=== PATIENT | male | born 1945 | race Caucasian/White ===

== ENCOUNTER → 2016-06-22 | Outpatient (CLI) | payer OTHER ==
[~2016-06-22] MED LIST: *BLDWK6; *XRAY -; /PANT40TA; CELEBRE200 PO; DARVOCET-N PO; ELIDEL TOPICAL; LIPITOR10 PO; MOTRIN800 PO; NEXIUM40 PO; PRAVACHOL PO; PRAVACHOL4 PO; PREVACID30 PO; PROTONIX40 PO; SARNLOT TOPICAL; VIT B; VITA100T; [UNRECOGNIZED DRUG - OTHER] TOPICAL
--- NOTE | 2016-06-22 18:20 | REP ---
Clinical: Chest pain with sinusitis. Technique: PA and lateral. Comparison: 11/15/2015. Findings: Acute patchy infiltrates involving the left upper lobe/lingula and left lower lobe and to a lesser extent suspected atelectasis at the right lung base. Findings are compatible with multifocal pneumonia. Mediastinum and cardiac silhouette within normal limits and stable. Underlying chronic interstitial changes noted. No effusion. No pneumothorax. Skeletal structures demonstrate age-related changes. Impression: Multifocal pneumonia primarily involving the left lung and right base. Signed by Minesh Leigh MD 06/22/2016 06:12 P
== END ==
LOC: M RAD 17:18
PROVIDERS: ATTEND Physician Assistant Medical
DX: J01.90 Acute sinusitis, unspecified (principal); J18.9 Pneumonia, unspecified organism

== ENCOUNTER → 2016-06-28 | Outpatient (CLI) | payer OTHER ==
--- NOTE | 2016-06-28 15:11 | REP ---
CHEST, TWO VIEWS: Two views of the chest are performed and compared to prior study 06/22/2016 as well as other prior exams dating back to 02/09/2015. There appear to be chronic fibrotic changes in the right lung base without definite superimposed acute infiltrate. There are also chronic fibrotic changes in the left lung base but there does appear to be persistent infiltrate in the lingula. This appears somewhat improved. Cardiomediastinal silhouette appears unchanged. IMPRESSION: Improved though persistent infiltrate in the lingular segment of the left upper lobe. Continued followup recommended. If the infiltrate does not clear, then a CT of the chest with contrast would be recommended. Signed by Tej Wei MD 06/28/2016 05:40 P
== END ==
LOC: M RAD 14:08 → M LAB 14:08
PROVIDERS: ATTEND Physician Assistant Medical
DX: J18.9 Pneumonia, unspecified organism (principal)

== ENCOUNTER → 2016-08-04 | Outpatient (CLI) | payer OTHER | LOC: M LAB 06:04 | PROVIDERS: ATTEND Family Medicine | DX: K76.0 Fatty (change of) liver, not elsewhere classified (principal); D75.89 Other specified diseases of blood and blood-forming organs ==

== ENCOUNTER → 2016-08-30 | Outpatient (CLI) | payer OTHER ==
--- NOTE | 2016-08-31 03:36 | REP ---
Clinical: Pneumonitis. Technique: PA and lateral. Comparison: 06/28/2016. Findings: Mediastinum and cardiac silhouette are stable. Mild continued left lower lobe and lingular infiltrate/atelectasis which appears improved compared to prior examination. No effusion. No pneumothorax. Skeletal structures intact. Impression: 1. Improved aeration with mild, but continued left lower lobe/ lingular infiltrate. 2. No new acute process identified. 3. Underlying chronic interstitial changes noted. Signed by Minesh Leigh MD 08/31/2016 03:27 A
== END ==
LOC: M RAD 13:24
PROVIDERS: ATTEND Family Medicine
DX: J69.0 Pneumonitis due to inhalation of food and vomit (principal)

== ENCOUNTER → 2016-09-01 | Outpatient (CLI) | payer OTHER ==
[2016-09-01 17:23] LABS: ALBUMIN 3.8 GM/DL (3.2-5.2); ALBUMIN/GLOBULIN RATIO 1.06 (1.00-1.93); ALKALINE PHOSPHATASE 87 U/L (45-117); ALT/SGPT 48 U/L (12-78); ANION GAP 6 MEQ/L (8-16); AST/SGOT 27 U/L (15-37); BILIRUBIN,TOTAL 0.5 MG/DL (0.2-1.0); BLOOD UREA NITROGEN 14 MG/DL (7-18); CALCIUM LEVEL 9.2 MG/DL (8.8-10.2); CARBON DIOXIDE LEVEL 27 MEQ/L (21-32); CHLORIDE LEVEL 106 MEQ/L (98-107); CREATININE FOR GFR 0.94 MG/DL (0.70-1.30); GLOMERULAR FILTRATION RATE > 60.0 (>42); GLUCOSE, FASTING 142 MG/DL (83-110); POTASSIUM SERUM 3.7 MEQ/L (3.5-5.1); SODIUM LEVEL 139 MEQ/L (136-145); TOTAL PROTEIN 7.4 GM/DL (6.4-8.2)
== END ==
LOC: M WUC 11:07
PROVIDERS: ATTEND Family Medicine
DX: J18.9 Pneumonia, unspecified organism (principal)

== ENCOUNTER → 2016-09-08 | Outpatient (CLI) | payer OTHER ==
[~2016-09-08] MED LIST changes: +ISOVUE-370 76% 100ML VIAL (Q9967) As Ordered ONE
== END ==
LOC: M RAD 13:31
PROVIDERS: ATTEND Family Medicine
DX: J18.9 Pneumonia, unspecified organism (principal); K44.9 Diaphragmatic hernia without obstruction or gangrene
CPT/HCPCS: 71260; Q9967

== ENCOUNTER → 2017-01-08 | Outpatient (REF) | payer OTHER ==
[~2017-01-08] MED LIST changes: -ISOVUE-370 76% 100ML VIAL (Q9967) As Ordered ONE
== END ==
LOC: M SFHCPLAZ 14:15
PROVIDERS: ATTEND Family Medicine
DX: D75.89 Other specified diseases of blood and blood-forming organs (principal)

== ENCOUNTER → 2017-01-11 | Outpatient (REF) | payer OTHER ==
[2017-01-11 13:38] LABS: MEAN CORPUSCULAR HEMOGLOBIN 34.9 pg (27.0-33.0); MEAN CORPUSCULAR HGB CONC 33.6 g/dl (32.0-36.5); MEAN CORPUSCULAR VOLUME 103.9 fl (80.0-96.0); RED CELL DISTRIBUTION WIDTH 12.7 % (11.5-14.5); WHITE BLOOD COUNT 7.8 10^3/uL (4.0-10.0)
[2017-01-11 14:01] LABS: EOSINOPHILS 3 % (0-5)
[2017-01-11 14:02] LABS: ALBUMIN 3.8 GM/DL (3.2-5.2); ALKALINE PHOSPHATASE 80 U/L (45-117); ALT/SGPT 39 U/L (12-78); ANION GAP 8 MEQ/L (8-16); AST/SGOT 24 U/L (15-37); BILIRUBIN,TOTAL 0.4 MG/DL (0.2-1.0); BLOOD UREA NITROGEN 14 MG/DL (7-18); CALCIUM LEVEL 8.8 MG/DL (8.8-10.2); CARBON DIOXIDE LEVEL 26 MEQ/L (21-32); CHLORIDE LEVEL 105 MEQ/L (98-107); CHOLESTEROL LEVEL 158 MG/DL (<200); GLOMERULAR FILTRATION RATE > 60.0 (>42); GLUCOSE, FASTING 105 MG/DL (83-110); POTASSIUM SERUM 4.3 MEQ/L (3.5-5.1); SODIUM LEVEL 139 MEQ/L (136-145); TOTAL PROTEIN 7.6 GM/DL (6.4-8.2); TRIGLYCERIDES LEVEL 180 MG/DL (<150)
[2017-01-16 00:08] LABS: FREE KAPPA LIGHT CHAINS SERUM 82.5 mg/L (3.3-19.4); FREE KAPPA LIGHT CHAINS URINE 17.9 mg/L (1.35-24.19); FREE LAMBDA LIGHT CHAINS SERUM 9.9 mg/L (5.7-26.3); FREE LAMBDA LIGHT CHAINS URINE 0.42 mg/L (0.24-6.66); KAPPA/LAMBDA RATIO SERUM 8.33 (0.26-1.65)
== END ==
LOC: M SFHCPLAZ 09:20
PROVIDERS: ATTEND Family Medicine
DX: E53.8 Deficiency of other specified B group vitamins (principal); R73.01 Impaired fasting glucose; E55.9 Vitamin D deficiency, unspecified; N40.1 Benign prostatic hyperplasia with lower urinary tract symptoms; E78.2 Mixed hyperlipidemia; D75.89 Other specified diseases of blood and blood-forming organs
CPT/HCPCS: 36415; 80053; 80061; 82306; 82550; 82747; 83036; 83883; 83970; 84443; 85007; 85027; 86140; G0103

== ENCOUNTER → 2017-06-28 | Outpatient (CLI) | payer OTHER ==
[2017-06-28 07:46] LABS: BASO # 0.1 10^3/uL (0.0-0.2); BASO % 0.8 % (0.0-1.0); EOS # 0.2 10^3/uL (0.0-0.50); EOS % 2.3 % (0.0-3.0); HEMOGLOBIN 15.5 g/dl (13.5-17.5); IMMATURE GRANULOCYTE % 0.4 % (0-3.0); LYMPH # 1.7 10^3/uL (1.5-4.5); LYMPH % 22.3 % (24.0-44.0); MEAN CORPUSCULAR HEMOGLOBIN 33.5 pg (27.0-33.0); MEAN CORPUSCULAR HGB CONC 33.7 g/dl (32.0-36.5); MEAN CORPUSCULAR VOLUME 99.4 fl (80.0-96.0); MONO # 0.8 10^3/uL (0.0-0.8); MONO % 10.4 % (0.0-5.0); NEUTROPHILS # 4.9 10^3/uL (1.8-7.7); NEUTROPHILS % 63.8 % (36.0-66.0); PLATELET COUNT, AUTOMATED 348 10^3/uL (150-450); RED BLOOD COUNT 4.63 10^6/uL (4.30-6.10); WHITE BLOOD COUNT 7.7 10^3/uL (4.0-10.0)
[2017-06-28 08:54] LABS: ALBUMIN/GLOBULIN RATIO 1.03 (1.00-1.93); ALKALINE PHOSPHATASE 95 U/L (45-117); ALT/SGPT 34 U/L (12-78); ANION GAP 5 MEQ/L (8-16); AST/SGOT 25 U/L (7-37); BILIRUBIN,TOTAL 0.2 MG/DL (0.2-1.0); BLOOD UREA NITROGEN 14 MG/DL (7-18); CALCIUM LEVEL 8.8 MG/DL (8.8-10.2); CARBON DIOXIDE LEVEL 29 MEQ/L (21-32); CHLORIDE LEVEL 109 MEQ/L (98-107); CREATININE FOR GFR 0.89 MG/DL (0.70-1.30); GLOMERULAR FILTRATION RATE > 60.0 (>42); GLUCOSE, FASTING 91 MG/DL (70-100); IMMUNOGLOBULIN G 1020 MG/DL (681-1648); IMMUNOGLOBULIN M 835 MG/DL (40-230); POTASSIUM SERUM 4.3 MEQ/L (3.5-5.1); SODIUM LEVEL 143 MEQ/L (136-145); TOTAL PROTEIN 7.9 GM/DL (6.4-8.2)
[2017-06-28 10:52] LABS: ESTIMATED AVERAGE GLUCOSE 117 MG/DL (60-110); HEMOGLOBIN A1c 5.7 %
[2017-06-30 00:07] LABS: BETA 2 MICROGLOBULIN 2.4 mg/L (0.6-2.4)
[2017-06-30 00:07] LABS: FREE KAPPA LIGHT CHAINS SERUM 89.7 mg/L (3.3-19.4); INSULIN LEVEL 20.6 uIU/mL (2.6-24.9); KAPPA/LAMBDA RATIO SERUM 6.41 (0.26-1.65)
== END ==
LOC: M LAB 06:26
DX: D47.2 Monoclonal gammopathy (principal)

== ENCOUNTER → 2018-01-12 | Outpatient (CLI) | payer OTHER ==
[2018-01-12 12:43] LABS: RETIC HEMOGLOBIN EQUIVALENT 39.8 pg (24-36); RETICULOCYTE # 64.3 10^9/L (17-77); RETICULOCYTE % 1.5 % (0.5-1.5)
[2018-01-12 12:48] LABS: HEMATOCRIT 43.4 % (42.0-52.0)
[2018-01-12 13:02] LABS: TOTAL PROTEIN 7.6 GM/DL (6.4-8.2)
== END ==
LOC: M LAB 10:59
DX: D47.2 Monoclonal gammopathy (principal)
CPT/HCPCS: 84165

== ENCOUNTER → 2018-06-05 | Outpatient (CLI) | payer OTHER ==
[2018-06-05 06:48] LABS: BASO % 0.6 % (0.0-1.0); EOS # 0.2 10^3/uL (0.0-0.50); EOS % 2.6 % (0.0-3.0); HEMATOCRIT 41.2 % (42.0-52.0); HEMOGLOBIN 14.2 g/dl (13.5-17.5); LYMPH # 1.5 10^3/uL (1.5-4.5); LYMPH % 22.3 % (24.0-44.0); MEAN CORPUSCULAR HEMOGLOBIN 34.8 pg (27.0-33.0); MEAN CORPUSCULAR HGB CONC 34.5 g/dl (32.0-36.5); MONO # 0.7 10^3/uL (0.0-0.8); MONO % 9.7 % (0.0-5.0); NEUTROPHILS # 4.5 10^3/uL (1.8-7.7); NEUTROPHILS % 64.7 % (36.0-66.0); PLATELET COUNT, AUTOMATED 285 10^3/uL (150-450); RED BLOOD COUNT 4.08 10^6/uL (4.30-6.10); WHITE BLOOD COUNT 6.9 10^3/uL (4.0-10.0)
[2018-06-05 07:06] LABS: HEMOGLOBIN A1c 5.5 %
[2018-06-05 07:30] LABS: ALBUMIN 3.5 GM/DL (3.2-5.2); ALT/SGPT 34 U/L (12-78); BILIRUBIN,TOTAL 0.4 MG/DL (0.2-1.0); BLOOD UREA NITROGEN 8 MG/DL (7-18); CALCIUM LEVEL 8.6 MG/DL (8.8-10.2); CARBON DIOXIDE LEVEL 27 MEQ/L (21-32); CHLORIDE LEVEL 109 MEQ/L (98-107); CREATININE FOR GFR 0.77 MG/DL (0.70-1.30); GLOMERULAR FILTRATION RATE > 60.0 (>42); GLUCOSE, FASTING 85 MG/DL (70-100); IMMUNOGLOBULIN G 789 MG/DL (681-1648); POTASSIUM SERUM 4.1 MEQ/L (3.5-5.1); SODIUM LEVEL 142 MEQ/L (136-145); TOTAL PROTEIN 6.8 GM/DL (6.4-8.2)
[2018-06-06 15:52] LABS: INSULIN LEVEL 12.3 uIU/mL (2.6-24.9)
[2018-06-07 00:10] LABS: FREE KAPPA LIGHT CHAINS SERUM 90.5 mg/L (3.3-19.4); FREE LAMBDA LIGHT CHAINS SERUM 10.7 mg/L (5.7-26.3); KAPPA/LAMBDA RATIO SERUM 8.46 (0.26-1.65)
[2018-06-07 08:10] LABS: FREE LAMBDA LIGHT CHAINS URINE 3.38 mg/L (0.24-6.66); KAPPA/LAMBDA RATIO URINE 49.41 (2.04-10.37)
== END ==
LOC: M LAB 06:16
PROVIDERS: ATTEND Family Medicine
DX: R73.01 Impaired fasting glucose (principal)

== ENCOUNTER → 2018-11-19 | Outpatient (CLI) | payer OTHER ==
[~2018-11-19] MED LIST changes: -/PANT40TA; +PROT1TAB2
[2018-11-19 06:53] LABS: BASO # 0.1 10^3/uL (0.0-0.2); BASO % 0.7 % (0.0-1.0); EOS # 0.1 10^3/uL (0.0-0.50); EOS % 1.8 % (0.0-3.0); HEMATOCRIT 44.6 % (42.0-52.0); HEMOGLOBIN 14.9 g/dl (13.5-17.5); LYMPH # 1.5 10^3/uL (1.5-4.5); LYMPH % 19.5 % (24.0-44.0); MEAN CORPUSCULAR HEMOGLOBIN 35.6 pg (27.0-33.0); MEAN CORPUSCULAR HGB CONC 33.4 g/dl (32.0-36.5); MEAN CORPUSCULAR VOLUME 106.7 fl (80.0-96.0); MONO # 0.7 10^3/uL (0.0-0.8); MONO % 8.8 % (0.0-5.0); NEUTROPHILS # 5.3 10^3/uL (1.8-7.7); NEUTROPHILS % 68.9 % (36.0-66.0); PLATELET COUNT, AUTOMATED 293 10^3/uL (150-450); RED BLOOD COUNT 4.18 10^6/uL (4.30-6.10); WHITE BLOOD COUNT 7.7 10^3/uL (4.0-10.0)
[2018-11-19 07:20] LABS: HEMOGLOBIN A1c 5.5 %
[2018-11-19 08:10] LABS: ALBUMIN 3.7 GM/DL (3.2-5.2); ALT/SGPT 36 U/L (12-78); BILIRUBIN,TOTAL 0.4 MG/DL (0.2-1.0); BLOOD UREA NITROGEN 15 MG/DL (7-18); CALCIUM LEVEL 8.8 MG/DL (8.8-10.2); CARBON DIOXIDE LEVEL 29 MEQ/L (21-32); CHLORIDE LEVEL 108 MEQ/L (98-107); CHOLESTEROL LEVEL 164 MG/DL (<200); CHOLESTEROL RISK RATIO 3.094 (<5); CREATININE FOR GFR 0.86 MG/DL (0.70-1.30); FREE T4 0.88 NG/DL (0.76-1.46); GLOMERULAR FILTRATION RATE > 60.0 (>42); GLUCOSE, FASTING 89 MG/DL (70-100); HDL CHOLESTEROL 53 MG/DL (>40); IMMUNOGLOBULIN G 840 MG/DL (681-1648); LDL CHOLESTEROL 80 MG/DL (<100); NON-HDL-C 111 MG/DL; POTASSIUM SERUM 4.6 MEQ/L (3.5-5.1); SODIUM LEVEL 142 MEQ/L (136-145); TOTAL PROTEIN 7.4 GM/DL (6.4-8.2); TRIGLYCERIDES LEVEL 157 MG/DL (<150)
[2018-11-19 09:01] LABS: PTH INTACT 66.7 PG/ML (18.5-88.0)
[2018-11-21 00:06] LABS: FREE LAMBDA LIGHT CHAINS SERUM 10.3 mg/L (5.7-26.3); KAPPA/LAMBDA RATIO SERUM 11.65 (0.26-1.65)
== END ==
LOC: M LAB 06:09
PROVIDERS: ATTEND Nurse Practitioner Family
DX: D47.2 Monoclonal gammopathy (principal); E78.2 Mixed hyperlipidemia; R73.01 Impaired fasting glucose; E55.9 Vitamin D deficiency, unspecified

== ENCOUNTER 2018-12-23 18:35 | Emergency (ER) | payer OTHER ==
[~2018-12-23] VITALS: Ht 175.3 cm; Wt 84.9 kg
[2018-12-23] MEDS ORDERED: B-12100T2 PO (18:45)
[2018-12-23] MEDS ORDERED: OMEP-221 (18:45)
[2018-12-23] MEDS ORDERED: CHOL100029 PO (18:45)
[2018-12-23] MEDS ORDERED: FLUTISP (18:45)
[2018-12-23] MEDS ORDERED: PRAV80TA2 (18:45)
--- NOTE | 2018-12-23 20:53 | REPVR ---
PROCEDURE INFORMATION: Exam: US Scrotum Exam date and time: 12/23/2018 8:41 PM Clinical history: 73 years old, male; Scrotum pain; Additional info: Pain swelling right scrotum TECHNIQUE: Imaging protocol: Real-time ultrasound of the scrotum and contents with color Doppler and image documentation. COMPARISON: No relevant prior studies available. FINDINGS: Right Testicle: Right testis measures 3.7 x 2 x 3.1 cm. Normal echogenicity and echotexture. Normal flow. Left Testicle: Left testis measures 4.2 x 1.8 x 2.4 cm. Normal echogenicity and echotexture. Normal flow. Epididymides: Right epididymal head measures 8 mm. Small epididymal head cyst measures 2.5 x 3 mm. Remainder the right epididymis is enlarged and somewhat hypoechoic. Marked enlargement and heterogeneity of the epididymal tail. Increased Doppler flow predominantly in the epididymal tail. Findings consistent with epididymitis. Left epididymal head measures 7 mm. Scrotum: Normal. IMPRESSION: 1. Marked enlargement of the right epididymis particularly the epididymal tail with increased flow predominantly in the epididymal tail, findings consistent with acute epididymitis. 2. Small epididymal head cyst on the right. Electronically signed by: Joe Gómez On 12/23/2018 20:53:36 PM
[2018-12-23] MEDS ORDERED: LevoFLOXacin 500 MG TABLET PO ONE (22:15)
[2018-12-23] MEDS ORDERED: LEVA1TAB2 PO (22:39)
[2018-12-23 22:44] VITALS: BP 170/96
== END 2018-12-23 22:50 | disposition home or self-care (01) ==
LOC: M ED 18:35
DX: N45.1 Epididymitis (principal); N50.3 Cyst of epididymis; K21.9 Gastro-esophageal reflux disease without esophagitis; M54.5 Low back pain; M25.559 Pain in unspecified hip; Z95.9 Presence of cardiac and vascular implant and graft, unspecified; Z79.899 Other long term (current) drug therapy

== ENCOUNTER → 2019-04-30 | Outpatient (CLI) | payer OTHER ==
[~2019-04-30] MED LIST changes: +B-12100T2 PO; +CHOL100029 PO; +FLUTISP; +LEVA1TAB2 PO; +OMEP-221; +PRAV80TA2
[2019-04-30 08:25] LABS: BASO # 0.1 10^3/uL (0.0-0.2); BASO % 1.1 % (0.0-1.0); EOS # 0.3 10^3/uL (0.0-0.5); EOS % 3.6 % (0.0-3.0); HEMATOCRIT 44.3 % (42.0-52.0); HEMOGLOBIN 14.9 g/dl (13.5-17.5); LYMPH # 1.8 10^3/uL (1.5-5.0); LYMPH % 23.2 % (24.0-44.0); MEAN CORPUSCULAR HEMOGLOBIN 34.9 pg (27.0-33.0); MEAN CORPUSCULAR HGB CONC 33.6 g/dl (32.0-36.5); MEAN CORPUSCULAR VOLUME 103.7 fl (80.0-96.0); MONO # 0.8 10^3/uL (0.0-0.8); MONO % 10.5 % (0.0-5.0); NEUTROPHILS # 4.6 10^3/uL (1.5-8.5); NEUTROPHILS % 61.2 % (36.0-66.0); PLATELET COUNT, AUTOMATED 314 10^3/uL (150-450); RED BLOOD COUNT 4.27 10^6/uL (4.30-6.10); WHITE BLOOD COUNT 7.5 10^3/uL (4.0-10.0)
[2019-04-30 08:54] LABS: BLOOD UREA NITROGEN 12 MG/DL (7-18); CALCIUM LEVEL 8.8 MG/DL (8.8-10.2); CARBON DIOXIDE LEVEL 29 MEQ/L (21-32); CHLORIDE LEVEL 107 MEQ/L (98-107); CREATININE FOR GFR 0.92 MG/DL (0.70-1.30); GLOMERULAR FILTRATION RATE > 60.0 (>42); GLUCOSE, FASTING 89 MG/DL (70-100); POTASSIUM SERUM 4.4 MEQ/L (3.5-5.1); SODIUM LEVEL 141 MEQ/L (136-145)
[2019-04-30 08:55] LABS: ALBUMIN 3.8 GM/DL (3.2-5.2); ALT/SGPT 42 U/L (12-78); BILIRUBIN,TOTAL 0.4 MG/DL (0.2-1.0); FREE T4 1.03 NG/DL (0.76-1.46); TOTAL PROTEIN 7.4 GM/DL (6.4-8.2)
[2019-04-30 11:47] LABS: THYROID PEROXIDASE ANTIBODY < 28.0 U/ML (<60.0); VITAMIN B12 LEVEL 728 PG/ML (247-911)
[2019-05-01 12:01] LABS: ALBUMIN 4.08 GM/DL (3.29-5.55); ALBUMIN % 55.1 % (55.8-66.1); ALPHA-2-GLOBULINS 0.96 GM/DL (0.42-0.99); BETA-1-GLOBULINS 0.37 GM/DL (0.28-0.60); BETA-2-GLOBULINS 0.85 GM/DL (0.19-0.55); BETA-2-GLOBULINS % 11.5 % (3.2-6.5); GAMMA GLOBULIN % 11.4 % (11.1-18.8); GAMMA GLOBULINS 0.84 GM/DL (0.65-1.58)
== END ==
LOC: M LAB 07:21
PROVIDERS: ATTEND Family Medicine
DX: D47.2 Monoclonal gammopathy (principal); E53.8 Deficiency of other specified B group vitamins; E78.2 Mixed hyperlipidemia

== ENCOUNTER → 2019-10-03 | Outpatient (CLI) | payer OTHER ==
--- NOTE | 2019-10-03 11:16 | REP ---
STANDING AP BILATERAL KNEES: A single AP standing views of bilateral knees is performed. There is no acute fracture or dislocation. There is mild medial joint space narrowing symmetrically bilaterally. There is mild spurring of the tibial spine bilaterally with a more moderate degree of spurring of the left lateral tibial spine. IMPRESSION: Mild degenerative changes as above. Electronically Signed by Tej Wei MD 10/05/2019 11:04 P
--- NOTE | 2019-10-03 11:22 | REP ---
LEFT KNEE SERIES: Five views of the left knee performed. There is no acute fracture or dislocation is seen. There is mild medial joint space narrowing. There is mild spurring of the medial tibial spine and moderate spurring of the lateral tibial spine. There is mild diffuse spurring of the patella. There is mild lateral patellofemoral compartment narrowing with mild subchondral sclerosis. I do not see a significant joint effusion. IMPRESSION: Mild degenerative changes. Electronically Signed by Tej Wei MD 10/05/2019 11:04 P
== END ==
LOC: M RAD 09:24
PROVIDERS: ATTEND Family Medicine
DX: M17.12 Unilateral primary osteoarthritis, left knee (principal)

== ENCOUNTER → 2019-12-03 | Outpatient (CLI) | payer OTHER ==
[2019-12-03 07:03] LABS: BASO % 0.4 % (0.0-1.0); EOS # 0.1 10^3/uL (0.0-0.5); EOS % 0.9 % (0.0-3.0); HEMATOCRIT 46.9 % (42.0-52.0); HEMOGLOBIN 15.6 g/dl (13.5-17.5); MEAN CORPUSCULAR HEMOGLOBIN 35.1 pg (27.0-33.0); MEAN CORPUSCULAR HGB CONC 33.3 g/dl (32.0-36.5); MEAN CORPUSCULAR VOLUME 105.6 fl (80.0-96.0); MONO # 0.9 10^3/uL (0.0-0.8); NEUTROPHILS # 6.5 10^3/uL (1.5-8.5); NEUTROPHILS % 68.1 % (36.0-66.0); PLATELET COUNT, AUTOMATED 322 10^3/uL (150-450); RED BLOOD COUNT 4.44 10^6/uL (4.30-6.10); WHITE BLOOD COUNT 9.6 10^3/uL (4.0-10.0)
[2019-12-03 07:20] LABS: HEMOGLOBIN A1c 5.7 %
[2019-12-03 07:34] LABS: CHOLESTEROL RISK RATIO 2.793 (<5)
[2019-12-04 18:07] LABS: FREE KAPPA LIGHT CHAINS SERUM 83.8 mg/L (3.3-19.4); FREE KAPPA LIGHT CHAINS URINE 131.78 mg/L (0.63-113.79); FREE LAMBDA LIGHT CHAINS SERUM 8.9 mg/L (5.7-26.3); FREE LAMBDA LIGHT CHAINS URINE 2.64 mg/L (0.47-11.77); INSULIN LEVEL 18.1 uIU/mL (2.6-24.9); KAPPA/LAMBDA RATIO SERUM 9.42 (0.26-1.65); KAPPA/LAMBDA RATIO URINE 49.92 (1.03-31.76)
== END ==
LOC: M LAB 06:12
PROVIDERS: ATTEND Family Medicine
DX: D47.2 Monoclonal gammopathy (principal); R73.01 Impaired fasting glucose; Z12.5 Encounter for screening for malignant neoplasm of prostate
CPT/HCPCS: 36415; 80061; 83036; 83525; 83883; 85025; G0103

== ENCOUNTER → 2020-03-09 | Outpatient (CLI) | payer OTHER ==
--- NOTE | 2020-03-09 09:42 | REP ---
INDICATION: DEGENERATIVE TEAR MED MENISCUS LEFT. Left knee pain. COMPARISON: Comparison radiographs October 03, 2019.. TECHNIQUE: Axial, coronal, and sagittal imaging planes utilized. T1, proton density T2 weighted scans were obtained in the usual fashion with without fat saturation. FINDINGS: Cortical and medullary bone signal intensity are normal. There is a small amount of joint fluid and a small Lin cyst is seen in the posteromedial popliteal soft tissues. There is mild soft tissue edema anterior to the intact patellar tendon. Quadriceps tendon is intact. Anterior and posterior cruciate ligaments 7 intact appearance. There is no evidence of medial or lateral collateral ligament disruption. There is moderate chondromalacia in the medial femoral condyle articular cartilage with heterogeneous signal intensity and partial thickness thinning. There is mild chondromalacia in the on the medial tibial plateau articular cartilage. Moderate chondromalacia is seen in the lateral tibial plateau articular cartilage with partial thickness fissuring. There is mild chondromalacia in the lateral patellar facet articular cartilage. Mild superior and inferior articular spurring of the patella is seen. These changes are compatible with mild osteoarthritis. There is a focal tear in the posterior horn of the medial meniscus extending to both the superior and inferior articular margins. No displaced meniscal material is seen. No lateral meniscal tear is visible. 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 A Lin's cyst is seen. There is a vertically oriented tear in the posterior horn of the medial meniscus. Small amount of joint fluid. <Electronically signed by Gian Nelson > 03/09/20 0916
== END ==
LOC: M RAD 06:46
PROVIDERS: ATTEND Physician Assistant Medical
DX: M23.204 Derangement of unspecified medial meniscus due to old tear or injury, left knee (principal); M94.262 Chondromalacia, left knee; M71.22 Synovial cyst of popliteal space [Baker], left knee

== ENCOUNTER → 2020-05-26 | Outpatient (CLI) | payer OTHER ==
[2020-05-26 07:05] LABS: HEMATOCRIT 47.9 % (42.0-52.0); HEMOGLOBIN 15.7 g/dl (13.5-17.5); MEAN CORPUSCULAR HEMOGLOBIN 34.8 pg (27.0-33.0); MEAN CORPUSCULAR HGB CONC 32.8 g/dl (32.0-36.5); MEAN CORPUSCULAR VOLUME 106.2 fl (80.0-96.0); PLATELET COUNT, AUTOMATED 323 10^3/uL (150-450); RED BLOOD COUNT 4.51 10^6/uL (4.30-6.10); WHITE BLOOD COUNT 7.3 10^3/uL (4.0-10.0)
[2020-05-26 07:28] LABS: TOTAL PROTEIN,RANDOM URINE 24.2 MG/DL (0.0-12.0)
[2020-05-26 08:03] LABS: ALBUMIN 4.1 GM/DL (3.2-5.2); ALT/SGPT 42 U/L (12-78); BILIRUBIN,TOTAL 0.5 MG/DL (0.2-1.0); BLOOD UREA NITROGEN 12 MG/DL (7-18); CARBON DIOXIDE LEVEL 30 MEQ/L (21-32); CHLORIDE LEVEL 107 MEQ/L (98-107); CHOLESTEROL LEVEL 166 MG/DL (<200); CHOLESTEROL RISK RATIO 3.074 (<5); CREATININE FOR GFR 0.97 MG/DL (0.70-1.30); GLOMERULAR FILTRATION RATE > 60.0 (>42); GLUCOSE, FASTING 92 MG/DL (70-100); HDL CHOLESTEROL 54 MG/DL (>40); IMMUNOGLOBULIN G 841 MG/DL (681-1648); LDL CHOLESTEROL 93 MG/DL (<100); NON-HDL-C 112 MG/DL; POTASSIUM SERUM 4.5 MEQ/L (3.5-5.1); SODIUM LEVEL 141 MEQ/L (136-145); TOTAL PROTEIN 7.8 GM/DL (6.4-8.2); TRIGLYCERIDES LEVEL 97 MG/DL (<150)
[2020-05-26 09:09] LABS: HEMOGLOBIN A1c 5.4 %
[2020-05-26 13:28] LABS: ALBUMIN 4.39 GM/DL (3.29-5.55); ALBUMIN % 56.3 % (55.8-66.1); ALPHA-1-GLOBULIN % 3.6 % (2.9-4.9); ALPHA-1-GLOBULINS 0.28 GM/DL (0.17-0.41); ALPHA-2-GLOBULINS 0.94 GM/DL (0.42-0.99); ALPHA-2-GLOBULINS % 12.1 % (7.1-11.8); BETA-1-GLOBULINS 0.38 GM/DL (0.28-0.60); BETA-1-GLOBULINS % 4.9 % (4.7-7.2); BETA-2-GLOBULINS 0.85 GM/DL (0.19-0.55); BETA-2-GLOBULINS % 10.9 % (3.2-6.5); GAMMA GLOBULIN % 12.2 % (11.1-18.8); GAMMA GLOBULINS 0.95 GM/DL (0.65-1.58)
== END ==
LOC: M LAB 06:27
PROVIDERS: ATTEND Family Medicine
DX: R73.01 Impaired fasting glucose (principal); D47.2 Monoclonal gammopathy

== ENCOUNTER → 2020-10-28 | Outpatient (CLI) | payer OTHER ==
[2020-10-28 06:40] LABS: BASO % 0.5 % (0.0-1.0); EOS # 0.2 10^3/uL (0.0-0.5); EOS % 2.4 % (0.0-3.0); HEMOGLOBIN 14.8 g/dl (13.5-17.5); LYMPH # 1.8 10^3/uL (1.5-5.0); LYMPH % 28.2 % (24.0-44.0); MEAN CORPUSCULAR HEMOGLOBIN 34.8 pg (27.0-33.0); MEAN CORPUSCULAR HGB CONC 33.6 g/dl (32.0-36.5); MEAN CORPUSCULAR VOLUME 103.5 fl (80.0-96.0); MONO # 0.7 10^3/uL (0.0-0.8); MONO % 10.7 % (2.0-8.0); NEUTROPHILS # 3.7 10^3/uL (1.5-8.5); NEUTROPHILS % 57.9 % (36.0-66.0); PLATELET COUNT, AUTOMATED 282 10^3/uL (150-450); RED BLOOD COUNT 4.25 10^6/uL (4.30-6.10); WHITE BLOOD COUNT 6.3 10^3/uL (4.0-10.0)
[2020-10-28 06:58] LABS: HEMOGLOBIN A1c 5.4 %
[2020-10-28 07:11] LABS: ALBUMIN 3.7 GM/DL (3.2-5.2); ALT/SGPT 35 U/L (12-78); BILIRUBIN,TOTAL 0.4 MG/DL (0.2-1.0); BLOOD UREA NITROGEN 12 MG/DL (7-18); CALCIUM LEVEL 9.2 MG/DL (8.8-10.2); CARBON DIOXIDE LEVEL 30 MEQ/L (21-32); CHLORIDE LEVEL 108 MEQ/L (98-107); CREATININE FOR GFR 0.81 MG/DL (0.70-1.30); FERRITIN 352 NG/ML (26-388); GLOMERULAR FILTRATION RATE > 60.0 (>42); GLUCOSE, FASTING 89 MG/DL (70-100); POTASSIUM SERUM 4.1 MEQ/L (3.5-5.1); SODIUM LEVEL 143 MEQ/L (136-145); TOTAL PROTEIN 7.3 GM/DL (6.4-8.2)
[2020-10-28 09:13] LABS: VITAMIN B12 LEVEL 598 PG/ML (247-911)
[2020-10-30 05:07] LABS: FREE KAPPA LIGHT CHAINS SERUM 132.3 mg/L (3.3-19.4); FREE KAPPA LIGHT CHAINS URINE 123.55 mg/L (0.63-113.79); FREE LAMBDA LIGHT CHAINS SERUM 10.3 mg/L (5.7-26.3); FREE LAMBDA LIGHT CHAINS URINE 3.9 mg/L (0.47-11.77); INSULIN LEVEL 13.6 uIU/mL (2.6-24.9); KAPPA/LAMBDA RATIO SERUM 12.84 (0.26-1.65); KAPPA/LAMBDA RATIO URINE 31.68 (1.03-31.76)
== END ==
LOC: M LAB 06:09
PROVIDERS: ATTEND Family Medicine
DX: D47.2 Monoclonal gammopathy (principal); R73.01 Impaired fasting glucose; Z12.5 Encounter for screening for malignant neoplasm of prostate; E53.8 Deficiency of other specified B group vitamins
CPT/HCPCS: 36415; 80053; 82607; 82728; 83036; 83525; 83883; 85025; G0103

== ENCOUNTER → 2021-03-21 | Outpatient (CLI) | payer OTHER ==
[~2021-03-21] MED LIST changes: -OMEP-221; +OMEP40CA5
[2021-03-21 07:07] LABS: BASO # 0.1 10^3/uL (0.0-0.2); BASO % 0.8 % (0.0-1.0); EOS # 0.2 10^3/uL (0.0-0.5); EOS % 2.6 % (0.0-3.0); HEMOGLOBIN 14.9 g/dl (13.5-17.5); LYMPH # 1.6 10^3/uL (1.5-5.0); LYMPH % 21.7 % (24.0-44.0); MEAN CORPUSCULAR HEMOGLOBIN 34.8 pg (27.0-33.0); MEAN CORPUSCULAR HGB CONC 33.9 g/dl (32.0-36.5); MEAN CORPUSCULAR VOLUME 102.8 fl (80.0-96.0); MONO # 0.8 10^3/uL (0.0-0.8); MONO % 10.3 % (2.0-8.0); NEUTROPHILS # 4.7 10^3/uL (1.5-8.5); NEUTROPHILS % 64.1 % (36.0-66.0); PLATELET COUNT, AUTOMATED 299 10^3/uL (150-450); RED BLOOD COUNT 4.28 10^6/uL (4.30-6.10); WHITE BLOOD COUNT 7.3 10^3/uL (4.0-10.0)
[2021-03-21 07:20] LABS: TOTAL PROTEIN,RANDOM URINE 20.2 MG/DL (0.0-12.0)
[2021-03-21 07:24] LABS: HEMOGLOBIN A1c 5.3 %
[2021-03-21 07:33] LABS: ALBUMIN 3.8 GM/DL (3.2-5.2); ALT/SGPT 45 U/L (12-78); BILIRUBIN,TOTAL 0.5 MG/DL (0.2-1.0); BLOOD UREA NITROGEN 16 MG/DL (7-18); CALCIUM LEVEL 9.4 MG/DL (8.8-10.2); CARBON DIOXIDE LEVEL 29 MEQ/L (21-32); CHLORIDE LEVEL 109 MEQ/L (98-107); CHOLESTEROL LEVEL 159 MG/DL (<200); CHOLESTEROL RISK RATIO 2.789 (<5); CREATININE FOR GFR 0.91 MG/DL (0.70-1.30); GLOMERULAR FILTRATION RATE > 60.0 (>42); GLUCOSE, FASTING 93 MG/DL (70-100); HDL CHOLESTEROL 57 MG/DL (>40); LDL CHOLESTEROL 76 MG/DL (<100); NON-HDL-C 102 MG/DL; NT-PRO BNP 30 PG/ML (<450); POTASSIUM SERUM 4.5 MEQ/L (3.5-5.1); SODIUM LEVEL 141 MEQ/L (136-145); TOTAL PROTEIN 7.6 GM/DL (6.4-8.2); TRIGLYCERIDES LEVEL 131 MG/DL (<150)
[2021-03-21 14:12] LABS: ALBUMIN 4.29 GM/DL (3.29-5.55); ALBUMIN % 56.4 % (55.8-66.1); ALPHA-1-GLOBULIN % 3.6 % (2.9-4.9); ALPHA-1-GLOBULINS 0.27 GM/DL (0.17-0.41); ALPHA-2-GLOBULINS 0.85 GM/DL (0.42-0.99); ALPHA-2-GLOBULINS % 11.2 % (7.1-11.8); BETA-1-GLOBULINS 0.36 GM/DL (0.28-0.60); BETA-1-GLOBULINS % 4.8 % (4.7-7.2); BETA-2-GLOBULINS 0.92 GM/DL (0.19-0.55); BETA-2-GLOBULINS % 12.1 % (3.2-6.5); GAMMA GLOBULIN % 11.9 % (11.1-18.8)
== END ==
LOC: M LAB 06:34
PROVIDERS: ATTEND Family Medicine
DX: D47.2 Monoclonal gammopathy (principal)

== ENCOUNTER → 2021-11-28 | Outpatient (CLI) | payer OTHER ==
[2021-11-28 08:58] LABS: BASO # 0.1 10^3/uL (0.0-0.2); BASO % 0.9 % (0.0-1.0); EOS # 0.2 10^3/uL (0.0-0.5); EOS % 2.2 % (0.0-3.0); HEMATOCRIT 43.4 % (42.0-52.0); HEMOGLOBIN 14.6 g/dl (13.5-17.5); LYMPH # 1.6 10^3/uL (1.5-5.0); LYMPH % 22.6 % (24.0-44.0); MEAN CORPUSCULAR HGB CONC 33.6 g/dl (32.0-36.5); MEAN CORPUSCULAR VOLUME 104.1 fl (80.0-96.0); MONO # 0.7 10^3/uL (0.0-0.8); MONO % 9.9 % (2.0-8.0); NEUTROPHILS # 4.5 10^3/uL (1.5-8.5); PLATELET COUNT, AUTOMATED 301 10^3/uL (150-450); RED BLOOD COUNT 4.17 10^6/uL (4.30-6.10)
[2021-11-28 09:58] LABS: ALBUMIN 3.6 GM/DL (3.2-5.2); ALT/SGPT 33 U/L (12-78); BILIRUBIN,TOTAL 0.4 MG/DL (0.2-1.0); BLOOD UREA NITROGEN 14 MG/DL (7-18); CALCIUM LEVEL 9.1 MG/DL (8.8-10.2); CARBON DIOXIDE LEVEL 28 MEQ/L (21-32); CHLORIDE LEVEL 107 MEQ/L (98-107); CREATININE FOR GFR 0.84 MG/DL (0.70-1.30); GLOMERULAR FILTRATION RATE > 60.0 (>42); GLUCOSE, FASTING 84 MG/DL (70-100); POTASSIUM SERUM 4.7 MEQ/L (3.5-5.1); SODIUM LEVEL 137 MEQ/L (136-145); TOTAL PROTEIN 7.3 GM/DL (6.4-8.2)
[2021-11-29 11:17] LABS: PTH INTACT 52.4 PG/ML (18.5-88.0); TOTAL 25(OH) VITAMIN D 29.8 NG/ML (30.0-100.0)
== END ==
LOC: M LAB 08:11
PROVIDERS: ATTEND Family Medicine
DX: K76.0 Fatty (change of) liver, not elsewhere classified (principal)

== ENCOUNTER → 2022-05-11 | Outpatient (REF) | payer OTHER | LOC: M LAB REF 16:16 | PROVIDERS: ATTEND Physician Assistant | DX: R05.9 Cough, unspecified (principal) ==

== ENCOUNTER → 2022-06-08 | Outpatient (CLI) | payer OTHER ==
[2022-06-08 07:54] LABS: ALBUMIN 3.5 G/DL (3.2-5.2); ALKALINE PHOSPHATASE 98 U/L (46-116); ALT/SGPT 34 U/L (7.0-40); AST/SGOT 25 U/L (<34); BILIRUBIN,TOTAL 0.3 MG/DL (0.3-1.2); BLOOD UREA NITROGEN 13 MG/DL (9-23); CALCIUM LEVEL 8.7 MG/DL (8.3-10.6); CARBON DIOXIDE LEVEL 26 MMOL/L (20-31); CHLORIDE LEVEL 108 MMOL/L (98-107); CHOLESTEROL LEVEL 134 MG/DL (<200); CHOLESTEROL RISK RATIO 3.26 (<5); CREATININE FOR GFR 0.79 MG/DL (0.70-1.30); FERRITIN 365.2 NG/ML (10.5-307.3); GLOMERULAR FILTRATION RATE > 60.0 (>42); GLUCOSE, FASTING 91 MG/DL (74-106); HDL CHOLESTEROL 41.1 MG/DL (>40); LDL CHOLESTEROL 73.7 MG/DL (<100); NON-HDL-C 92.9 MG/DL; POTASSIUM SERUM 4.4 MMOL/L (3.5-5.1); SODIUM LEVEL 141 MMOL/L (136-145); TOTAL PROTEIN 6.9 G/DL (5.7-8.2); TRIGLYCERIDES LEVEL 96 MG/DL (<150); VITAMIN B12 LEVEL 699 PG/ML (211-911)
[2022-06-08 09:04] LABS: HEMOGLOBIN A1c 5.3 % (4.0-6.0)
== END ==
LOC: M LAB 06:36
PROVIDERS: ATTEND Family Medicine
DX: I10 Essential (primary) hypertension (principal)

== ENCOUNTER → 2022-12-08 | Outpatient (CLI) | payer MEDICARE ==
[~2022-12-08] MED LIST changes: +FLUT50SP17; -FLUTISP
[2022-12-08 07:04] LABS: BASO # 0.1 10^3/uL (0.0-0.2); BASO % 0.9 % (0.0-1.0); EOS # 0.1 10^3/uL (0.0-0.5); HEMATOCRIT 40.6 % (42.0-52.0); HEMOGLOBIN 13.7 g/dl (13.5-17.5); LYMPH # 1.5 10^3/uL (1.5-5.0); LYMPH % 21.2 % (24.0-44.0); MEAN CORPUSCULAR HEMOGLOBIN 35.1 pg (27.0-33.0); MEAN CORPUSCULAR HGB CONC 33.7 g/dl (32.0-36.5); MEAN CORPUSCULAR VOLUME 104.1 fl (80.0-96.0); MONO # 0.6 10^3/uL (0.0-0.8); MONO % 9.1 % (2.0-8.0); NEUTROPHILS # 4.7 10^3/uL (1.5-8.5); NEUTROPHILS % 67.5 % (36.0-66.0); PLATELET COUNT, AUTOMATED 318 10^3/uL (150-450)
[2022-12-08 07:32] LABS: ALBUMIN 3.9 G/DL (3.2-5.2); ALKALINE PHOSPHATASE 89 U/L (46-116); ALT/SGPT 33 U/L (7.0-40); AST/SGOT 19 U/L (<34); BILIRUBIN,TOTAL 0.8 MG/DL (0.3-1.2); BLOOD UREA NITROGEN 17 MG/DL (9-23); CALCIUM LEVEL 9.4 MG/DL (8.3-10.6); CARBON DIOXIDE LEVEL 28 MMOL/L (20-31); CHLORIDE LEVEL 106 MMOL/L (98-107); CREATININE FOR GFR 0.83 MG/DL (0.70-1.30); GLOMERULAR FILTRATION RATE > 60.0 (>42); GLUCOSE, FASTING 91 MG/DL (74-106); POTASSIUM SERUM 4.4 MMOL/L (3.5-5.1); SODIUM LEVEL 142 MMOL/L (136-145); TOTAL 25(OH) VITAMIN D 31.1 NG/ML (20.0-100.0); TOTAL PROTEIN 7.2 G/DL (5.7-8.2)
[2022-12-08 08:18] LABS: PTH INTACT 43.7 PG/ML (18.5-88.0)
[2022-12-12 05:11] LABS: FREE KAPPA LIGHT CHAINS SERUM 92.8 mg/L (3.3-19.4); FREE LAMBDA LIGHT CHAINS SERUM 10.5 mg/L (5.7-26.3); KAPPA/LAMBDA RATIO SERUM 8.84 (0.26-1.65)
== END ==
LOC: M LAB 06:09
PROVIDERS: ATTEND Family Medicine
DX: E55.9 Vitamin D deficiency, unspecified (principal); Z12.5 Encounter for screening for malignant neoplasm of prostate
CPT/HCPCS: 36415; 80053; 82306; 83521; 83970; 85025; G0103

== ENCOUNTER 2022-12-31 09:34 | Emergency (ER) | payer MEDICARE, OTHER ==
[~2022-12-31] VITALS: Ht 175.3 cm; Wt 81.9 kg
[2022-12-31 09:35] VITALS: TEMP 98.5
[2022-12-31] MEDS ORDERED: IRBE150T7 (09:53)
[2022-12-31] MEDS ORDERED: METO10TA2 (09:53)
[2022-12-31] MEDS ORDERED: BOOSTRIX VACCINE (TETANUS/DIPHTH/ACEL. PERTUSSIS) 0.5ML SYR IM ONE (11:55)
[2022-12-31] MEDS ORDERED: ACETAMINOPHEN 500 MG TAB PO ONE (11:55)
[2022-12-31 12:19] LABS: BASO # 0.1 10^3/uL (0.0-0.2); BASO % 0.5 % (0.0-1.0); EOS # 0.1 10^3/uL (0.0-0.5); HEMOGLOBIN 14.2 g/dl (13.5-17.5); LYMPH # 1.9 10^3/uL (1.5-5.0); LYMPH % 19.1 % (24.0-44.0); MEAN CORPUSCULAR HGB CONC 33.8 g/dl (32.0-36.5); MEAN CORPUSCULAR VOLUME 106.6 fl (80.0-96.0); MONO # 0.7 10^3/uL (0.0-0.8); MONO % 7.5 % (2.0-8.0); NEUTROPHILS % 71.5 % (36.0-66.0); PLATELET COUNT, AUTOMATED 306 10^3/uL (150-450); RED BLOOD COUNT 3.94 10^6/uL (4.30-6.10); WHITE BLOOD COUNT 9.8 10^3/uL (4.0-10.0)
[2022-12-31] MEDS ORDERED: ISOVUE-370 76% 100ML VIAL As Ordered ONE (12:29)
[2022-12-31 13:48] VITALS: BP 169/78; O2SAT 98
== END 2022-12-31 13:50 | disposition home or self-care (01) ==
LOC: M ED 09:34
DX: S49.91XA Unspecified injury of right shoulder and upper arm, initial encounter (principal); S20.212A Contusion of left front wall of thorax, initial encounter; S00.12XA Contusion of left eyelid and periocular area, initial encounter; S01.81XA Laceration without foreign body of other part of head, initial encounter; R10.12 Left upper quadrant pain; S02.2XXA Fracture of nasal bones, initial encounter for closed fracture; W19.XXXA Unspecified fall, initial encounter; Y92.410 Unspecified street and highway as the place of occurrence of the external cause; I10 Essential (primary) hypertension; E78.5 Hyperlipidemia, unspecified; Z98.61 Coronary angioplasty status; Z79.899 Other long term (current) drug therapy
CPT/HCPCS: 70450; 70486; 71101; 73060; 74177; 80047; 85025; 90471; 90715; 99284; Q9967

== ENCOUNTER → 2023-01-03 | Outpatient (CLI) | payer OTHER ==
[~2023-01-03] MED LIST changes: +IRBE150T7; +METO10TA2
== END ==
LOC: M SOG 08:56
PROVIDERS: ATTEND Orthopaedic Surgery
DX: M25.511 Pain in right shoulder (principal)

== ENCOUNTER → 2023-05-22 | Outpatient (REF) | payer OTHER ==
[~2023-05-22] MED LIST changes: -FLUT50SP17; +FLUTISP; +IRBE150T27; -IRBE150T7
== END ==
LOC: M SFHCPLAZ 17:13
PROVIDERS: ATTEND Physician Assistant
DX: J69.0 Pneumonitis due to inhalation of food and vomit (principal)

== ENCOUNTER → 2023-06-23 | Outpatient (CLI) | payer OTHER ==
[2023-06-23 09:17] LABS: INR 0.95; PARTIAL THROMBOPLASTIN TIME 27.5 SECONDS (24.8-34.2); PROTHROMBIN TIME 12.4 SECONDS (12.5-14.5)
[2023-06-23 09:32] LABS: ALBUMIN 3.7 G/DL (3.2-5.2); ALKALINE PHOSPHATASE 88 U/L (46-116); ALT/SGPT 39 U/L (7.0-40); AST/SGOT 24 U/L (<34); BILIRUBIN,TOTAL 0.6 MG/DL (0.3-1.2); BLOOD UREA NITROGEN 18 MG/DL (9-23); CALCIUM LEVEL 9.7 MG/DL (8.3-10.6); CARBON DIOXIDE LEVEL 31 MMOL/L (20-31); CHLORIDE LEVEL 106 MMOL/L (98-107); CHOLESTEROL LEVEL 158 MG/DL (<200); CHOLESTEROL RISK RATIO 3.15 (<5); CREATININE FOR GFR 0.85 MG/DL (0.70-1.30); GLOMERULAR FILTRATION RATE > 60.0 (>42); GLUCOSE, FASTING 87 MG/DL (74-106); HDL CHOLESTEROL 50.1 MG/DL (>40); LDL CHOLESTEROL 82.1 MG/DL (<100); MAGNESIUM LEVEL 2.1 MG/DL (1.8-2.4); NON-HDL-C 107.9 MG/DL; POTASSIUM SERUM 4.7 MMOL/L (3.5-5.1); SODIUM LEVEL 139 MMOL/L (136-145); TOTAL PROTEIN 7.3 G/DL (5.7-8.2); TRIGLYCERIDES LEVEL 129 MG/DL (<150)
[2023-06-23 09:34] LABS: FREE T4 0.97 NG/DL (0.89-1.76)
[2023-06-23 09:43] LABS: BASO % 0.6 % (0.0-1.0); EOS # 0.2 10^3/uL (0.0-0.5); EOS % 2.3 % (0.0-3.0); HEMATOCRIT 44.1 % (42.0-52.0); HEMOGLOBIN 14.8 g/dl (13.5-17.5); LYMPH # 1.8 10^3/uL (1.5-5.0); LYMPH % 27.4 % (24.0-44.0); MEAN CORPUSCULAR HEMOGLOBIN 35.7 pg (27.0-33.0); MEAN CORPUSCULAR HGB CONC 33.6 g/dl (32.0-36.5); MEAN CORPUSCULAR VOLUME 106.3 fl (80.0-96.0); MONO # 0.5 10^3/uL (0.0-0.8); MONO % 8.3 % (2.0-8.0); NEUTROPHILS % 61.1 % (36.0-66.0); PLATELET COUNT, AUTOMATED 275 10^3/uL (150-450); RED BLOOD COUNT 4.15 10^6/uL (4.30-6.10); WHITE BLOOD COUNT 6.5 10^3/uL (4.0-10.0)
== END ==
LOC: M LAB 07:58
PROVIDERS: ATTEND Family Medicine
DX: I10 Essential (primary) hypertension (principal)

== ENCOUNTER → 2023-09-12 | Outpatient (CLI) | payer OTHER | LOC: M PLAIMG 08:03 | PROVIDERS: ATTEND Family Medicine | DX: M79.671 Pain in right foot (principal) ==

== ENCOUNTER → 2023-11-18 | Outpatient (CLI) | payer OTHER ==
[2023-11-18 09:02] LABS: BASO # 0.1 10^3/uL (0.0-0.2); EOS # 0.1 10^3/uL (0.0-0.5); EOS % 1.8 % (0.0-3.0); HEMATOCRIT 42.5 % (42.0-52.0); HEMOGLOBIN 14.3 g/dl (13.5-17.5); LYMPH # 1.7 10^3/uL (1.5-5.0); MEAN CORPUSCULAR HEMOGLOBIN 35.8 pg (27.0-33.0); MEAN CORPUSCULAR HGB CONC 33.6 g/dl (32.0-36.5); MEAN CORPUSCULAR VOLUME 106.3 fl (80.0-96.0); MONO # 0.5 10^3/uL (0.0-0.8); MONO % 8.5 % (2.0-8.0); NEUTROPHILS # 3.8 10^3/uL (1.5-8.5); NEUTROPHILS % 61.4 % (36.0-66.0); PLATELET COUNT, AUTOMATED 277 10^3/uL (150-450); WHITE BLOOD COUNT 6.2 10^3/uL (4.0-10.0)
[2023-11-18 09:31] LABS: PSA SCREENING 0.82 NG/ML (< 4.00)
[2023-11-18 09:34] LABS: ALBUMIN 3.6 G/DL (3.2-5.2); ALKALINE PHOSPHATASE 97 U/L (46-116); ALT/SGPT 23 U/L (7.0-40); AST/SGOT 20 U/L (<34); BILIRUBIN,TOTAL 0.5 MG/DL (0.3-1.2); BLOOD UREA NITROGEN 11 MG/DL (9-23); CALCIUM LEVEL 9.1 MG/DL (8.3-10.6); CARBON DIOXIDE LEVEL 29 MMOL/L (20-31); CHLORIDE LEVEL 109 MMOL/L (98-107); CREATININE FOR GFR 0.89 MG/DL (0.70-1.30); GLOMERULAR FILTRATION RATE > 60.0 (>42); GLUCOSE, FASTING 88 MG/DL (74-106); POTASSIUM SERUM 4.7 MMOL/L (3.5-5.1); PTH INTACT 58.6 PG/ML (18.5-88.0); SODIUM LEVEL 141 MMOL/L (136-145); TOTAL PROTEIN 7.1 G/DL (5.7-8.2)
== END ==
LOC: M LAB 08:02
PROVIDERS: ATTEND Family Medicine
DX: E55.9 Vitamin D deficiency, unspecified (principal); Z12.5 Encounter for screening for malignant neoplasm of prostate; D47.2 Monoclonal gammopathy; I10 Essential (primary) hypertension

== ENCOUNTER → 2023-12-06 | Outpatient (REF) | payer OTHER | LOC: M SFHCPLAZ 12:37 | PROVIDERS: ATTEND Family Medicine | DX: D47.2 Monoclonal gammopathy (principal); I10 Essential (primary) hypertension; E55.9 Vitamin D deficiency, unspecified; R73.01 Impaired fasting glucose; E53.8 Deficiency of other specified B group vitamins; Z53.9 Procedure and treatment not carried out, unspecified reason ==

== ENCOUNTER → 2024-03-21 | Outpatient (CLI) | payer OTHER | LOC: M RAD 09:30 | PROVIDERS: ATTEND Physician Assistant | DX: M25.551 Pain in right hip (principal); Z96.641 Presence of right artificial hip joint | CPT/HCPCS: 78315; A9503 ==

== ENCOUNTER → 2024-04-18 | Outpatient (CLI) | payer MEDICARE, OTHER ==
[2024-04-18 07:03] LABS: BASO # 0.1 10^3/uL (0.0-0.2); BASO % 0.7 % (0.0-1.0); EOS # 0.1 10^3/uL (0.0-0.5); EOS % 1.8 % (0.0-3.0); HEMATOCRIT 41.9 % (42.0-52.0); HEMOGLOBIN 13.9 g/dl (13.5-17.5); LYMPH # 1.3 10^3/uL (1.5-5.0); LYMPH % 19.6 % (24.0-44.0); MEAN CORPUSCULAR HEMOGLOBIN 35.4 pg (27.0-33.0); MEAN CORPUSCULAR HGB CONC 33.2 g/dl (32.0-36.5); MEAN CORPUSCULAR VOLUME 106.6 fl (80.0-96.0); MONO # 0.4 10^3/uL (0.0-0.8); MONO % 6.3 % (2.0-8.0); NEUTROPHILS # 4.9 10^3/uL (1.5-8.5); NEUTROPHILS % 71.2 % (36.0-66.0); PLATELET COUNT, AUTOMATED 247 10^3/uL (150-450); RED BLOOD COUNT 3.93 10^6/uL (4.30-6.10); WHITE BLOOD COUNT 6.8 10^3/uL (4.0-10.0)
[2024-04-18 07:29] LABS: ALBUMIN 3.7 G/DL (3.2-5.2); ALKALINE PHOSPHATASE 81 U/L (40-129); ALT/SGPT 33 U/L (7.0-40); AST/SGOT 20 U/L (<34); BILIRUBIN,TOTAL 0.6 MG/DL (0.3-1.2); BLOOD UREA NITROGEN 18 MG/DL (9-23); CALCIUM LEVEL 9.3 MG/DL (8.3-10.6); CARBON DIOXIDE LEVEL 29 MMOL/L (20-31); CHLORIDE LEVEL 106 MMOL/L (98-107); CREATININE FOR GFR 0.92 MG/DL (0.70-1.30); GLOMERULAR FILTRATION RATE > 60.0 (>42); GLUCOSE, FASTING 88 MG/DL (74-106); POTASSIUM SERUM 4.7 MMOL/L (3.5-5.1); PTH INTACT 69.1 PG/ML (18.5-88.0); SODIUM LEVEL 144 MMOL/L (136-145); TOTAL PROTEIN 7.7 G/DL (5.7-8.2)
[2024-04-18 07:31] LABS: FERRITIN 277.7 NG/ML (10.5-307.3); TOTAL 25(OH) VITAMIN D 38.1 NG/ML (20.0-100.0)
[2024-04-18 07:35] LABS: HEMOGLOBIN A1c 5.4 % (4.0-6.0)
[2024-04-19 07:58] LABS: PROTEIN, TOTAL SO 7.4 g/dL (6.1-8.1)
[2024-04-22 06:52] LABS: ALBUMIN SO 4.1 g/dL (3.8-4.8); ALPHA 1 GLOBULINS SO 0.3 g/dL (0.2-0.3); ALPHA 2 GLOBULINS SO 0.8 g/dL (0.5-0.9); BETA GLOBULIN SO 0.4 g/dL (0.4-0.6); GAMMA GLOBULINS SO 0.9 g/dL (0.8-1.7); SPEP IFE ABN PROTEIN BAND 1 0.9 g/dL (NONE DETECTED)
== END ==
LOC: M LAB 06:31
PROVIDERS: ATTEND Family Medicine
DX: D47.2 Monoclonal gammopathy (principal); I10 Essential (primary) hypertension; E55.9 Vitamin D deficiency, unspecified; R73.01 Impaired fasting glucose; E53.8 Deficiency of other specified B group vitamins

== ENCOUNTER 2024-05-26 08:15 | Day surgery (SDC) | payer OTHER ==
[~2024-05-26] VITALS: Ht 175.3 cm; Wt 81.2 kg
[~2024-05-26 08:15] MED LIST changes: -IRBE150T27; +IRBE150T27 PO; +LIDOCAINE 2% 100MG/5ML SDV (FOR ANES.) As Ordered ONE; -METO10TA2; +METO10TA2 PO; -OMEP40CA5; +OMEP40CA5 PO; -PRAV80TA2; +PRAV80TA2 PO; +VITA200016 PO; +propofoL 200 MG/20 ML VIAL As Ordered ONE
[2024-05-26] MEDS ORDERED: fentaNYL 100 MCG/2 ML INJECTION As Ordered ONE (09:25)
[2024-05-26 09:52] VITALS: TEMP 97.5
[2024-05-26 10:15] VITALS: BP 147/75; O2SAT 97
== END 2024-05-26 10:24 | disposition home or self-care (01) ==
LOC: M OPP 08:15
PROVIDERS: ATTEND Internal Medicine Gastroenterology
DX: Z12.11 Encounter for screening for malignant neoplasm of colon (principal); K57.30 Diverticulosis of large intestine without perforation or abscess without bleeding; K64.0 First degree hemorrhoids; K22.89 Other specified disease of esophagus; K44.9 Diaphragmatic hernia without obstruction or gangrene; K22.70 Barrett's esophagus without dysplasia; R12 Heartburn; Z79.899 Other long term (current) drug therapy
CPT/HCPCS: 43239; 45378; 88305; J3010

== ENCOUNTER 2024-06-19 02:40 | Inpatient (IN) | payer MEDICARE, OTHER ==
[~2024-06-19] VITALS: Ht 172.7 cm; Wt 82.7 kg
[~2024-06-19 02:40] MED LIST changes: -LIDOCAINE 2% 100MG/5ML SDV (FOR ANES.) As Ordered ONE; -propofoL 200 MG/20 ML VIAL As Ordered ONE
[2024-06-19] MEDS: IPRATROPIUM 0.5MG/ALBUTEROL 2.5MG INH SOL UD 3ML NEB SCH (03:20)
[2024-06-19 03:22] LABS: BASO % 0.2 % (0.0-1.0); EOS % 0.1 % (0.0-3.0); HEMATOCRIT 42.6 % (42.0-52.0); HEMOGLOBIN 14.5 g/dl (13.5-17.5); LYMPH # 0.8 10^3/uL (1.5-5.0); LYMPH % 3.7 % (24.0-44.0); MEAN CORPUSCULAR HEMOGLOBIN 36.2 pg (27.0-33.0); MEAN CORPUSCULAR VOLUME 106.2 fl (80.0-96.0); MONO # 0.9 10^3/uL (0.0-0.8); MONO % 4.3 % (2.0-8.0); NEUTROPHILS # 19.7 10^3/uL (1.5-8.5); NEUTROPHILS % 91.2 % (36.0-66.0); PLATELET COUNT, AUTOMATED 274 10^3/uL (150-450); RED BLOOD COUNT 4.01 10^6/uL (4.30-6.10); WHITE BLOOD COUNT 21.6 10^3/uL (4.0-10.0)
[2024-06-19 03:28] LABS: ABG BASE EXCESS -3.4 (-2.0-2.0); ABG HCO3 20.4 MMOL/L (22.0-26.0); ABG O2 SATURATION 96.3 % (95.0-99.0); ABG PARTIAL PRESSURE CO2 33.1 mmHg (35.0-45.0); ABG PARTIAL PRESSURE O2 84.3 mmHg (75.0-100.0); ABG STANDARD HCO3 21.7 MMOL/L. (22.0-26.0); ABG TOTAL CO2 21.4 MMOL/L (23.0-31.0); ABG pH (ARTERIAL) 7.407 UNITS (7.350-7.450)
[2024-06-19] MEDS: ACETAMINOPHEN *IV* 1,000 MG in IV 1 EA IV ONE (03:34)
[2024-06-19] MEDS: NS (Normal Saline) 0.9% 1,000 ML IV ONE (03:34)
[2024-06-19] MEDS: cefTRIAXone SOD 2 GM in DEXTROSE 5% (D5W) ADV/MINI-BAG 50 ML IV ONE (03:34)
[2024-06-19 03:44] LABS: ALBUMIN 3.8 G/DL (3.2-5.2); ALKALINE PHOSPHATASE 84 U/L (40-129); ALT/SGPT 44 U/L (7.0-40); AST/SGOT 45 U/L (<34); BILIRUBIN,DIRECT 0.2 MG/DL (<0.4); BILIRUBIN,TOTAL 0.5 MG/DL (0.3-1.2); BLOOD UREA NITROGEN 18 MG/DL (9-23); CALCIUM LEVEL 9.5 MG/DL (8.3-10.6); CARBON DIOXIDE LEVEL 26 MMOL/L (20-31); CHLORIDE LEVEL 103 MMOL/L (98-107); CK-MB VALUE MASS < 1.0 NG/ML (<3.6); CREATININE FOR GFR 0.82 MG/DL (0.70-1.30); GLOMERULAR FILTRATION RATE > 60.0 (>42); GLUCOSE, FASTING 132 MG/DL (74-106); POTASSIUM SERUM 4.2 MMOL/L (3.5-5.1); SODIUM LEVEL 138 MMOL/L (136-145); TOTAL PROTEIN 7.7 G/DL (5.7-8.2)
[2024-06-19 03:45] LABS: CPK CREATINE PHOSPHOKINASE 55 U/L (46-171); MB/CK RELATIVE INDEX 1.81 (< OR =4)
[2024-06-19] MEDS ORDERED: ISOVUE-370 76% 100ML VIAL As Ordered ONE (04:11)
[2024-06-19] MEDS: AZITHROMYCIN 250MG TABLET PO ONE (05:27)
[2024-06-19] MEDS ORDERED: MOM 30ML SUSPENSION UDC PO PRN (05:55)
[2024-06-19] MEDS ORDERED: ACETAMINOPHEN 325 MG TAB PO PRN (05:55)
[2024-06-19] MEDS ORDERED: TIOTROPIUM INHALER/CAPSULE (SPIRIVA) INH SCH (08:00)
[2024-06-19] MEDS: LEVALBUTEROL 1.25 MG 0.5ML CONCENTRATE NEB INH SCH (08:28)
[2024-06-19] MEDS: DOCUSATE SODIUM 100MG CAPSULE PO SCH (08:47)
[2024-06-19] MEDS: DOXYCYCLINE HYCLATE 100MG TABLET PO SCH (09:13)
[2024-06-19] MEDS ORDERED: IBUP-1022 PO (11:12)
[2024-06-19] MEDS ORDERED: FLON1SPR NARES (11:12)
[2024-06-19] MEDS ORDERED: MED REC IN PROGRESS XX SCH (13:05)
[2024-06-19] MEDS: OMEPRAZOLE 20MG CAP PO SCH (14:19)
[2024-06-19 16:20] VITALS: BP 146/70; TEMP 97.9; O2SAT 93
[2024-06-19] MEDS ORDERED: HOME MED LIST COMPLETE! XX SCH (16:30)
[2024-06-19] MEDS: TIOTROPIUM BROM 2.5MCG/ACTUATION 4GM INH IH SCH (17:05)
[2024-06-19] MEDS: SYMBICORT 160/4.5MCG INHALER 6GM INH SCH (17:05)
[2024-06-19 17:24] VITALS: O2SAT 90
[2024-06-19 19:26] VITALS: O2SAT 88
[2024-06-19 19:27] VITALS: O2SAT 90
[2024-06-19 19:30] VITALS: O2SAT 91
[2024-06-19 19:55] VITALS: BP 112/68; TEMP 98.1; O2SAT 95
[2024-06-19] MEDS ORDERED: VANCOMYCIN HCL 1,240 MG in IV FLUID PLACE HOLDER 1 EA IV SCH (22:05)
[2024-06-19 22:47] LABS: VENOUS BASE EXCESS 0.2 (-2.0-2.0); VENOUS HCO3 24.6 MMOL/L (23.0-27.0); VENOUS O2 SATURATION 87.2 % (60.0-80.0); VENOUS PARTIAL PRESSURE CO2 39.2 mmHg (38.0-50.0); VENOUS PARTIAL PRESSURE O2 53.2 mmHg (30.0-50.0); VENOUS PH 7.416 UNITS (7.330-7.430); VENOUS STANDARD HCO3 24.4 MMOL/L; VENOUS TOTAL CO2 25.8 MMOL/L (24.0-28.0)
[2024-06-19 22:56] LABS: BASO % 0.3 % (0.0-1.0); EOS # 0.2 10^3/uL (0.0-0.5); EOS % 1.9 % (0.0-3.0); HEMATOCRIT 33.8 % (42.0-52.0); LYMPH # 1.6 10^3/uL (1.5-5.0); LYMPH % 13.7 % (24.0-44.0); MEAN CORPUSCULAR HEMOGLOBIN 36.2 pg (27.0-33.0); MEAN CORPUSCULAR VOLUME 106.3 fl (80.0-96.0); MONO # 0.7 10^3/uL (0.0-0.8); MONO % 5.7 % (2.0-8.0); PLATELET COUNT, AUTOMATED 204 10^3/uL (150-450); RED BLOOD COUNT 3.18 10^6/uL (4.30-6.10); WHITE BLOOD COUNT 11.6 10^3/uL (4.0-10.0)
[2024-06-19] MEDS: LEVALBUTEROL 1.25 MG 0.5ML CONCENTRATE NEB INH PRN (23:18)
[2024-06-19 23:24] LABS: HEMOGLOBIN 11.5 g/dl (13.5-17.5)
[2024-06-19] MEDS: VANCOMYCIN HCL 1,750 MG, VIAL MATE ADAPTER 1 EACH in NS 500 ML IV ONE (23:33)
[2024-06-19] MEDS: predniSONE 20 MG TAB PO SCH (23:33)
[2024-06-20] MEDS ORDERED: cefTRIAXone SOD 1 GM in DEXTROSE 5% (D5W) ADV/MINI-BAG 50 ML IV SCH
[2024-06-20 00:42] LABS: PROCALCITONIN 0.25 ng/ml
[2024-06-20 00:43] LABS: ALBUMIN 2.8 G/DL (3.2-5.2); ALKALINE PHOSPHATASE 60 U/L (40-129); ALT/SGPT 29 U/L (7.0-40); AST/SGOT 20 U/L (<34); BILIRUBIN,TOTAL 0.8 MG/DL (0.3-1.2); BLOOD UREA NITROGEN 14 MG/DL (9-23); CALCIUM LEVEL 8.5 MG/DL (8.3-10.6); CARBON DIOXIDE LEVEL 25 MMOL/L (20-31); CHLORIDE LEVEL 111 MMOL/L (98-107); CREATININE FOR GFR 0.79 MG/DL (0.70-1.30); GLOMERULAR FILTRATION RATE > 60.0 (>42); GLUCOSE, FASTING 96 MG/DL (74-106); MAGNESIUM LEVEL 1.8 MG/DL (1.8-2.4); POTASSIUM SERUM 3.9 MMOL/L (3.5-5.1); SODIUM LEVEL 144 MMOL/L (136-145)
[2024-06-20] MEDS: IPRATROPIUM 0.5MG/ALBUTEROL 2.5MG INH SOL UD 3ML NEB SCH ×2 (02:00→20:51)
[2024-06-20 03:23] VITALS: BP 113/62; TEMP 97.1; O2SAT 93
[2024-06-20] MEDS: cefTRIAXone SOD 2 GM in DEXTROSE 5% (D5W) ADV/MINI-BAG 50 ML IV SCH (04:27)
[2024-06-20 05:39] LABS: BASO % 0.2 % (0.0-1.0); EOS % 0.1 % (0.0-3.0); HEMOGLOBIN 11.8 g/dl (13.5-17.5); LYMPH # 0.4 10^3/uL (1.5-5.0); LYMPH % 3.8 % (24.0-44.0); MEAN CORPUSCULAR HEMOGLOBIN 36.3 pg (27.0-33.0); MEAN CORPUSCULAR HGB CONC 33.7 g/dl (32.0-36.5); MEAN CORPUSCULAR VOLUME 107.7 fl (80.0-96.0); MONO # 0.1 10^3/uL (0.0-0.8); MONO % 1.2 % (2.0-8.0); NEUTROPHILS # 10.2 10^3/uL (1.5-8.5); NEUTROPHILS % 94.1 % (36.0-66.0); PLATELET COUNT, AUTOMATED 211 10^3/uL (150-450); RED BLOOD COUNT 3.25 10^6/uL (4.30-6.10); WHITE BLOOD COUNT 10.8 10^3/uL (4.0-10.0)
[2024-06-20 06:09] LABS: BLOOD UREA NITROGEN 12 MG/DL (9-23); CALCIUM LEVEL 8.5 MG/DL (8.3-10.6); CARBON DIOXIDE LEVEL 23 MMOL/L (20-31); CHLORIDE LEVEL 110 MMOL/L (98-107); CREATININE FOR GFR 0.73 MG/DL (0.70-1.30); GLOMERULAR FILTRATION RATE > 60.0 (>42); GLUCOSE, FASTING 149 MG/DL (74-106); POTASSIUM SERUM 4.1 MMOL/L (3.5-5.1); SODIUM LEVEL 143 MMOL/L (136-145)
[2024-06-20] MEDS: ENOXAPARIN 40MG/0.4ML SYRINGE (J1650 PER 10MG) SC SCH (09:45)
[2024-06-20] MEDS: VANCOMYCIN HCL 1,000 MG, VIAL MATE ADAPTER 1 EACH in NS 250 ML IV SCH (11:30)
[2024-06-20 12:02] VITALS: BP 142/68; TEMP 97.2; O2SAT 96
[2024-06-20 15:40] VITALS: BP 153/77; TEMP 97.2; O2SAT 96
[2024-06-20 16:30] VITALS: O2SAT 94
[2024-06-20 19:00] VITALS: O2SAT 92
[2024-06-20 20:26] VITALS: BP 126/65; TEMP 97.7; O2SAT 93
[2024-06-20] MEDS: LEVALBUTEROL 1.25 MG 0.5ML CONCENTRATE NEB INH SCH (20:53)
[2024-06-21 04:38] VITALS: BP 125/65; TEMP 97.9; O2SAT 95
[2024-06-21 06:02] LABS: BASO % 0.2 % (0.0-1.0); EOS # 0.1 10^3/uL (0.0-0.5); EOS % 1.1 % (0.0-3.0); HEMOGLOBIN 11.5 g/dl (13.5-17.5); LYMPH # 1.4 10^3/uL (1.5-5.0); LYMPH % 11.7 % (24.0-44.0); MEAN CORPUSCULAR HEMOGLOBIN 35.8 pg (27.0-33.0); MEAN CORPUSCULAR HGB CONC 33.8 g/dl (32.0-36.5); MEAN CORPUSCULAR VOLUME 105.9 fl (80.0-96.0); MONO # 0.7 10^3/uL (0.0-0.8); MONO % 5.3 % (2.0-8.0); NEUTROPHILS % 81.2 % (36.0-66.0); PLATELET COUNT, AUTOMATED 221 10^3/uL (150-450); RED BLOOD COUNT 3.21 10^6/uL (4.30-6.10); WHITE BLOOD COUNT 12.4 10^3/uL (4.0-10.0)
[2024-06-21 06:34] LABS: BLOOD UREA NITROGEN 13 MG/DL (9-23); CALCIUM LEVEL 8.7 MG/DL (8.3-10.6); CARBON DIOXIDE LEVEL 25 MMOL/L (20-31); CHLORIDE LEVEL 107 MMOL/L (98-107); CREATININE FOR GFR 0.71 MG/DL (0.70-1.30); GLOMERULAR FILTRATION RATE > 60.0 (>42); GLUCOSE, FASTING 101 MG/DL (74-106); POTASSIUM SERUM 3.7 MMOL/L (3.5-5.1); SODIUM LEVEL 143 MMOL/L (136-145)
[2024-06-21 08:12] VITALS: O2SAT 92
[2024-06-21 08:13] VITALS: O2SAT 91
[2024-06-21 12:00] VITALS: BP 125/67; TEMP 97.7; O2SAT 90
[2024-06-21] MEDS ORDERED: CEFD1CAP9 PO (12:42)
[2024-06-21] MEDS ORDERED: PRED20TA PO (12:42)
[2024-06-21] MEDS ORDERED: SPIR12.9 IH (12:42)
[2024-06-21] MEDS ORDERED: VENTAER INH (12:42)
== END 2024-06-21 14:05 | disposition home or self-care (01) | DRG 189 ==
LOC: M ED 02:40 → M ED INP 05:52 → M MS4PR 16:15 → OBSVTOIN 06-20 12:11 → M MS5PR 06-20 15:40
PROVIDERS: ADMIT Family Medicine; ATTEND Internal Medicine Nephrology
DX: J96.01 Acute respiratory failure with hypoxia (principal); J18.9 Pneumonia, unspecified organism; J44.0 Chronic obstructive pulmonary disease with (acute) lower respiratory infection; J44.1 Chronic obstructive pulmonary disease with (acute) exacerbation; D47.2 Monoclonal gammopathy; K76.0 Fatty (change of) liver, not elsewhere classified; I10 Essential (primary) hypertension; E78.5 Hyperlipidemia, unspecified; M17.0 Bilateral primary osteoarthritis of knee; E53.8 Deficiency of other specified B group vitamins; K21.9 Gastro-esophageal reflux disease without esophagitis; N40.0 Benign prostatic hyperplasia without lower urinary tract symptoms; Z87.891 Personal history of nicotine dependence; Z79.899 Other long term (current) drug therapy; Z96.641 Presence of right artificial hip joint

== ENCOUNTER → 2024-10-10 | Outpatient (CLI) | payer OTHER ==
[~2024-10-10] MED LIST changes: +CEFD1CAP9 PO; +FLON1SPR NARES; +IBUP-1022 PO; -PRAV80TA2 PO; +PRAV80TA75 PO; +PRED20TA PO; +SPIR12.9 IH; +VENTAER INH
== END ==
LOC: M CLY 09:04
PROVIDERS: ATTEND Physician Assistant
DX: M25.512 Pain in left shoulder (principal); R05.1 Acute cough

== ENCOUNTER → 2024-10-10 | Outpatient (CLI) | payer OTHER | LOC: M CLY 08:57 | PROVIDERS: ATTEND Physician Assistant | DX: M25.512 Pain in left shoulder (principal); R05.1 Acute cough ==

== ENCOUNTER → 2025-02-10 | Outpatient (CLI) | payer OTHER ==
[~2025-02-10] MED LIST changes: -IBUP-1022 PO; +IBUP600T42 PO
[2025-02-10 07:35] LABS: BASO # 0.1 10^3/uL (0.0-0.2); BASO % 0.9 % (0.0-1.0); EOS # 0.1 10^3/uL (0.0-0.5); EOS % 1.2 % (0.0-3.0); LYMPH # 1.5 10^3/uL (1.5-5.0); LYMPH % 21.7 % (24.0-44.0); MONO # 0.6 10^3/uL (0.0-0.8); MONO % 8.9 % (2.0-8.0); NEUTROPHILS # 4.6 10^3/uL (1.5-8.5); NEUTROPHILS % 66.7 % (36.0-66.0); PLATELET COUNT, AUTOMATED 289 10^3/uL (150-450)
[2025-02-10 07:56] LABS: CPK CREATINE PHOSPHOKINASE 34.0 U/L (46-171)
[2025-02-10 07:57] LABS: ALT/SGPT 20.0 U/L (7.0-40); AST/SGOT 16.0 U/L (<34); CALCIUM LEVEL 9.0 MG/DL (8.3-10.6); CARBON DIOXIDE LEVEL 30.0 MMOL/L (20-31); CHLORIDE LEVEL 105.0 MMOL/L (98-107); CHOLESTEROL LEVEL 157.0 MG/DL (<200); CHOLESTEROL RISK RATIO 2.94 (<5); CREATININE FOR GFR 0.96 MG/DL (0.70-1.30); GLOMERULAR FILTRATION RATE 79.9 (>35); IRON (FE) 189.0 UG/DL (65-175); LDL CHOLESTEROL 88.7 MG/DL (<100); NON-HDL-C 103.7 MG/DL; PERCENT SATURATION 81.5 % (19.7-50.0); POTASSIUM SERUM 4.4 MMOL/L (3.5-5.1); PTH INTACT 42.7 PG/ML (18.5-88.0); SODIUM LEVEL 142.0 MMOL/L (136-145); TOTAL 25(OH) VITAMIN D 55.6 NG/ML (20.0-100.0); TRIGLYCERIDES LEVEL 75.0 MG/DL (<150)
[2025-02-10 07:59] LABS: FREE T4 1.17 NG/DL (0.89-1.76)
[2025-02-12 06:13] LABS: PROTEIN, TOTAL SO 6.8 g/dL (6.1-8.1)
[2025-02-13 09:07] LABS: ALBUMIN SO 3.8 g/dL (3.8-4.8); ALPHA 1 GLOBULINS SO 0.3 g/dL (0.2-0.3); ALPHA 2 GLOBULINS SO 0.9 g/dL (0.5-0.9); BETA 2 GLOBULIN SO 0.8 g/dL (0.2-0.5); BETA GLOBULIN SO 0.4 g/dL (0.4-0.6); GAMMA GLOBULINS SO 0.7 g/dL (0.8-1.7); SPEP IFE ABN PROTEIN BAND 1 0.7 g/dL (NONE DETECTED)
== END ==
LOC: M LAB 06:31
PROVIDERS: ATTEND Family Medicine
DX: E55.9 Vitamin D deficiency, unspecified (principal); D47.2 Monoclonal gammopathy; I10 Essential (primary) hypertension; R79.89 Other specified abnormal findings of blood chemistry